=== PATIENT | male | born 1980 | race African-American/Black ===

== ENCOUNTER 2016-05-11 11:31 | Inpatient (IN) | payer OTHER ==
[2016-05-11 12:28] VITALS: BMI 23.6
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
[2016-05-11] MEDS ORDERED: NICOTINE POLACRILEX 4 MG GUM BUC PRN (14:14)
[2016-05-11] MEDS ORDERED: MENTHOL/PHENOL 1 EACH UD MM PRN (14:14)
[2016-05-11] MEDS ORDERED: guaiFENesin/D-METHORPHAN HB 10 ML UNIT-DOSE CUPS PO PRN (14:14)
[2016-05-11] MEDS ORDERED: MAG HYDROX/AL HYDROX/SIMETH 30 ML UNIT-DOSE CUP PO PRN (14:14)
[2016-05-11] MEDS ORDERED: IBUPROFEN 400 MG TABLET (FP) PO PRN (14:14)
[2016-05-11] MEDS ORDERED: LOPERAMIDE HCL 2 MG CAPSULE PO PRN (14:14)
[2016-05-11] MEDS ORDERED: ACETAMINOPHEN 325 MG TABLET (FP) PO PRN (14:14)
[2016-05-11] MEDS ORDERED: MAGNESIUM CITRATE 300 ML BOTTLE PO PRN (14:14)
[2016-05-11] MEDS ORDERED: diphenhydrAMINE HCL 50 MG CAPSULE PO PRN (14:14)
[2016-05-11] MEDS ORDERED: MAGNESIUM HYDROX 2400MG/30ML ORAL SUSPENSION 30 ML CUP PO PRN (14:14)
[2016-05-11] MEDS ORDERED: P-EPHED 60MG/TRIPROLIDI 2.5MG TABLET PO PRN (14:14)
[2016-05-11] MEDS ORDERED: chlordiazePOXIDE HCL 25 MG CAPSULE PO PRN (14:14)
[2016-05-11] MEDS ORDERED: chlordiazePOXIDE HCL 25 MG CAPSULE PO ONE (15:05)
[2016-05-11] MEDS: NICOTINE 21 MG/24 HOURS TOPICAL PATCH TD SCH (16:14)
[2016-05-11] MEDS: chlordiazePOXIDE HCL 25 MG CAPSULE PO SCH ×2 (17:31→22:40)
[2016-05-11 20:07] LABS: URINE APPEARANCE CLEAR; URINE BILIRUBIN NEGATIVE (NEGATIVE); URINE BLOOD NEGATIVE (NEGATIVE); URINE COLOR DKYELLOW; URINE GLUCOSE (UA) NEGATIVE (NEGATIVE); URINE KETONE 2+ (NEGATIVE); URINE NITRITE NEGATIVE (NEGATIVE); URINE UROBILINOGEN 2.0 E.U/dl E.U./dl (0.2-1.0)
[2016-05-11 20:09] LABS: URINE LEUK ESTERASE 2+ (NEGATIVE); URINE PROTEIN 1+ (NEGATIVE)
[2016-05-11 20:14] LABS: URINE HYALINE CAST 3 /lpf; URINE MUCUS MANY; URINE RBC 2 /hpf (0-3); URINE WBC 49 /hpf (3-5)
[2016-05-11] MEDS: THIAMINE HCL 100 MG TABLET (FP) PO SCH (22:40)
[2016-05-12] MEDS: chlordiazePOXIDE HCL 25 MG CAPSULE PO SCH ×4 (05:39→22:44)
[2016-05-12 09:59] LABS: MCH 30.3 pg (25.7-33.7); MCHC 32.4 g/dl (32.0-35.9); MEAN CELL VOLUME 93.5 fl (80-96); MEAN PLT VOLUME 8.6 fl (7.5-11.1); PLATELET COUNT 433 K/MM3 (134-434); RDW 14.8 % (11.9-15.9); WHITE BLOOD COUNT 9.4 K/mm3 (4.0-10.0)
[2016-05-12 10:22] LABS: ALBUMIN 3.2 g/dl (3.4-5.0); ALK PHOS 86 U/L (45-117); ANION GAP 10 (8-16); BILIRUBIN,TOTAL 0.3 mg/dL (0.2-1.0); CALCIUM 8.9 mg/dL (8.5-10.1); CO2 30 mmol/L (21-32); CREATININE 0.9 mg/dL (0.7-1.3); GLUCOSE,RANDOM 99 mg/dL (74-106); SGOT/AST 17 U/L (15-37); SGPT/ALT 38 U/L (12-78); TOT PROT 6.7 g/dl (6.4-8.2)
[2016-05-12] MEDS: PRENATAL VITAMINS W/ FOLIC ACID TABLET (FP) PO SCH (10:46)
[2016-05-12] MEDS: NICOTINE 21 MG/24 HOURS TOPICAL PATCH TD SCH (10:47)
--- NOTE | 2016-05-12 10:47 | EKG ---
Test Reason : Blood Pressure : / mmHG Vent. Rate : 061 BPM Atrial Rate : 061 BPM P-R Int : 148 ms QRS Dur : 086 ms QT Int : 394 ms P-R-T Axes : 073 005 022 degrees QTc Int : 396 ms NORMAL SINUS RHYTHM NO PREVIOUS ECGS AVAILABLE Confirmed by DONNIE WALKER MD ([id number]) on 05/12/2016 10:47:10 AM Referred By: Confirmed By:DONNIE WALKER MD
--- NOTE | 2016-05-12 11:19 | PN ---
[facility] CIWA - CIWA Score Nausea/Vomitin-No Nausea/No Vomiting Muscle Tremors: 4-Moderate,w/Arms Extend Anxiety: 4-Mod. Anxious/Guarded Agitation: 4-Moderately Restless Paroxysmal Sweats: 1-Minimal Palms Moist Orientation: 0-Oriented Tacttile Disturbances: 3-Moderate Itch/Numb/Burn Auditory Disturbances: 0-None Visual Disturbances: 0-None Headache: 0-None Present CIWA-Ar Total Score: 16 BHS Progress Note (SOAP) Subjective: ANXIETY,SWEATS,TREMORS,INTERMITTENT SLEEP Objective: 05/12/16 11:18 Vital Signs Temperature 98.1 F 05/12/16 09:49 Pulse Rate 93 H 05/12/16 09:49 Respiratory Rate 18 05/12/16 09:49 Blood Pressure 113/81 05/12/16 09:49 O2 Sat by Pulse Oximetry (%) Laboratory Last Values WBC 9.4 K/mm3 (4.0-10.0) 05/12/16 07:00 RBC 4.81 M/mm3 (4.00-5.60) 05/12/16 07:00 Hgb 14.6 GM/dL (11.7-16.9) 05/12/16 07:00 Hct 45.0 % (35.4-49) 05/12/16 07:00 MCV 93.5 fl (80-96) 05/12/16 07:00 MCHC 32.4 g/dl (32.0-35.9) 05/12/16 07:00 RDW 14.8 % (11.9-15.9) D 05/12/16 07:00 Plt Count 433 K/MM3 (134-434) D 05/12/16 07:00 MPV 8.6 fl (7.5-11.1) 05/12/16 07:00 Sodium 141 mmol/L (136-145) 05/12/16 07:00 Potassium 4.2 mmol/L (3.5-5.1) 05/12/16 07:00 Chloride 101 mmol/L (98-107) 05/12/16 07:00 Carbon Dioxide 30 mmol/L (21-32) 05/12/16 07:00 Anion Gap 10 (8-16) 05/12/16 07:00 BUN 9 mg/dL (7-18) D 05/12/16 07:00 Creatinine 0.9 mg/dL (0.7-1.3) D 05/12/16 07:00 Creat Clearance w eGFR > 60 (>60) 05/12/16 07:00 Random Glucose 99 mg/dL (74-106) 05/12/16 07:00 Calcium 8.9 mg/dL (8.5-10.1) 05/12/16 07:00 Total Bilirubin 0.3 mg/dL (0.2-1.0) D 05/12/16 07:00 AST 17 U/L (15-37) D 05/12/16 07:00 ALT 38 U/L (12-78) D 05/12/16 07:00 Alkaline Phosphatase 86 U/L (45-117) D 05/12/16 07:00 Total Protein 6.7 g/dl (6.4-8.2) D 05/12/16 07:00 Albumin 3.2 g/dl (3.4-5.0) L D 05/12/16 07:00 Urine Color Dkyellow 05/11/16 16:00 Urine Appearance Clear 05/11/16 16:00 Urine pH 6.0 (5.0-8.0) 05/11/16 16:00 Ur Specific [place] 1.029 (1.001-1.035) 05/11/16 16:00 Urine Protein 1+ (NEGATIVE) H 05/11/16 16:00 Urine Glucose (UA) Negative (NEGATIVE) 05/11/16 16:00 Urine Ketones 2+ (NEGATIVE) H 05/11/16 16:00 Urine Blood Negative (NEGATIVE) 05/11/16 16:00 Urine Nitrite Negative (NEGATIVE) 05/11/16 16:00 Urine Bilirubin Negative (NEGATIVE) 05/11/16 16:00 Urine Urobilinogen 2.0 e.u/dl E.U./dl (0.2-1.0) 05/11/16 16:00 Ur Leukocyte Esterase 2+ (NEGATIVE) H 05/11/16 16:00 Urine RBC 2 /hpf (0-3) 05/11/16 16:00 Urine WBC 49 /hpf (3-5) 05/11/16 16:00 Hyaline Casts 3 /lpf 05/11/16 16:00 Urine Mucus Many 05/11/16 16:00 UA NOTED Assessment: 05/12/16 11:18 WITHDRAWAL SX Plan: CONTINUE DETOX REPEAT UA; UC
[2016-05-12 12:29] LABS: HIV 1 & 2 AB NEGATIVE; HIV 1 AGp24 NEGATIVE
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
[2016-05-12 19:12] LABS: URINE APPEARANCE CLOUDY; URINE BILIRUBIN NEGATIVE (NEGATIVE); URINE BLOOD NEGATIVE (NEGATIVE); URINE COLOR AMBER; URINE GLUCOSE (UA) NEGATIVE (NEGATIVE); URINE KETONE NEGATIVE (NEGATIVE); URINE NITRITE NEGATIVE (NEGATIVE); URINE UROBILINOGEN 4.0 E.U/dl E.U./dl (0.2-1.0)
[2016-05-12 19:13] LABS: URINE LEUK ESTERASE 2+ (NEGATIVE); URINE PROTEIN 1+ (NEGATIVE)
[2016-05-12 19:27] LABS: CALCIUM OXALATE CRYSTALS RARE /hpf (NONE SEEN); URINE BACTERIA RARE /hpf (NONE SEEN); URINE MUCUS MANY; URINE RBC 5 /hpf (0-3); URINE WBC 39 /hpf (3-5)
[2016-05-12] MEDS: traZODone HCL 100 MG TABLET (FP) PO SCH (22:44)
[2016-05-12] MEDS: THIAMINE HCL 100 MG TABLET (FP) PO SCH (22:44)
[2016-05-13] MEDS: chlordiazePOXIDE HCL 25 MG CAPSULE PO SCH ×2 (06:00→10:34)
[2016-05-13] MEDS: SERTRALINE HCL 50 MG TABLET (FP) PO SCH (10:34)
[2016-05-13] MEDS: NICOTINE 21 MG/24 HOURS TOPICAL PATCH TD SCH (10:34)
[2016-05-13] MEDS: PRENATAL VITAMINS W/ FOLIC ACID TABLET (FP) PO SCH (10:34)
--- NOTE | 2016-05-13 11:00 | PN ---
[facility] CIWA - CIWA Score Nausea/Vomitin-No Nausea/No Vomiting Muscle Tremors: 4-Moderate,w/Arms Extend Anxiety: 4-Mod. Anxious/Guarded Agitation: 4-Moderately Restless Paroxysmal Sweats: 1-Minimal Palms Moist Orientation: 0-Oriented Tacttile Disturbances: 2-Mild Itch/Numbness/Burn Auditory Disturbances: 0-None Visual Disturbances: 0-None Headache: 0-None Present CIWA-Ar Total Score: 15 S Progress Note (SOAP) Subjective: ANXIETY,SWEATS,SLIGHT TREMORS. Objective: 05/13/16 10:59 Vital Signs Temperature 96.4 F L 05/13/16 10:10 Pulse Rate 90 05/13/16 10:10 Respiratory Rate 18 05/13/16 10:10 Blood Pressure 107/76 05/13/16 10:10 O2 Sat by Pulse Oximetry (%) Laboratory Last Values WBC 9.4 K/mm3 (4.0-10.0) 05/12/16 07:00 RBC 4.81 M/mm3 (4.00-5.60) 05/12/16 07:00 Hgb 14.6 GM/dL (11.7-16.9) 05/12/16 07:00 Hct 45.0 % (35.4-49) 05/12/16 07:00 MCV 93.5 fl (80-96) 05/12/16 07:00 MCHC 32.4 g/dl (32.0-35.9) 05/12/16 07:00 RDW 14.8 % (11.9-15.9) D 05/12/16 07:00 Plt Count 433 K/MM3 (134-434) D 05/12/16 07:00 MPV 8.6 fl (7.5-11.1) 05/12/16 07:00 Sodium 141 mmol/L (136-145) 05/12/16 07:00 Potassium 4.2 mmol/L (3.5-5.1) 05/12/16 07:00 Chloride 101 mmol/L (98-107) 05/12/16 07:00 Carbon Dioxide 30 mmol/L (21-32) 05/12/16 07:00 Anion Gap 10 (8-16) 05/12/16 07:00 BUN 9 mg/dL (7-18) D 05/12/16 07:00 Creatinine 0.9 mg/dL (0.7-1.3) D 05/12/16 07:00 Creat Clearance w eGFR > 60 (>60) 05/12/16 07:00 Random Glucose 99 mg/dL (74-106) 05/12/16 07:00 Calcium 8.9 mg/dL (8.5-10.1) 05/12/16 07:00 Total Bilirubin 0.3 mg/dL (0.2-1.0) D 05/12/16 07:00 AST 17 U/L (15-37) D 05/12/16 07:00 ALT 38 U/L (12-78) D 05/12/16 07:00 Alkaline Phosphatase 86 U/L (45-117) D 05/12/16 07:00 Total Protein 6.7 g/dl (6.4-8.2) D 05/12/16 07:00 Albumin 3.2 g/dl (3.4-5.0) L D 05/12/16 07:00 Urine Color Esha 05/12/16 13:20 Urine Appearance Cloudy 05/12/16 13:20 Urine pH 7.0 (5.0-8.0) 05/12/16 13:20 Ur Specific [place] 1.026 (1.001-1.035) 05/12/16 13:20 Urine Protein 1+ (NEGATIVE) H 05/12/16 13:20 Urine Glucose (UA) Negative (NEGATIVE) 05/12/16 13:20 Urine Ketones Negative (NEGATIVE) 05/12/16 13:20 Urine Blood Negative (NEGATIVE) 05/12/16 13:20 Urine Nitrite Negative (NEGATIVE) 05/12/16 13:20 Urine Bilirubin Negative (NEGATIVE) 05/12/16 13:20 Urine Urobilinogen 4.0 e.u/dl E.U./dl (0.2-1.0) 05/12/16 13:20 Ur Leukocyte Esterase 2+ (NEGATIVE) H 05/12/16 13:20 Urine RBC 5 /hpf (0-3) 05/12/16 13:20 Urine WBC 39 /hpf (3-5) 05/12/16 13:20 Calcium Oxalate Crystal Rare /hpf (NONE SEEN) 05/12/16 13:20 Urine Bacteria Rare /hpf (NONE SEEN) 05/12/16 13:20 Hyaline Casts 3 /lpf 05/11/16 16:00 Urine Mucus Many 05/12/16 13:20 RPR Titer Nonreactive (NONREACTIVE) 05/12/16 07:00 HIV 1&2 Antibody Screen Negative 05/11/16 07:00 HIV P24 Antigen Negative 05/11/16 07:00 Assessment: 05/13/16 10:59 WITHDRAWAL SX Plan: CONTINUE DETOX
[2016-05-13] MEDS: chlordiazePOXIDE 5 MG CAPSULE PO SCH ×2 (17:24→22:44)
[2016-05-13] MEDS: THIAMINE HCL 100 MG TABLET (FP) PO SCH (22:44)
[2016-05-13] MEDS: traZODone HCL 100 MG TABLET (FP) PO SCH (22:44)
[2016-05-14] MEDS: chlordiazePOXIDE 5 MG CAPSULE PO SCH ×2 (06:16→10:39)
[2016-05-14] MEDS: SERTRALINE HCL 50 MG TABLET (FP) PO SCH (10:38)
[2016-05-14] MEDS: PRENATAL VITAMINS W/ FOLIC ACID TABLET (FP) PO SCH (10:38)
[2016-05-14] MEDS: NICOTINE 21 MG/24 HOURS TOPICAL PATCH TD SCH (10:39)
--- NOTE | 2016-05-14 12:21 | PN ---
BHS Progress Note (SOAP) Subjective: ANXIETY,SWEATS,FATIGUE. Objective: 05/14/16 12:20 Vital Signs Temperature 96.6 F L 05/14/16 09:52 Pulse Rate 100 H 05/14/16 09:52 Respiratory Rate 18 05/14/16 09:52 Blood Pressure 113/71 05/14/16 09:52 O2 Sat by Pulse Oximetry (%) Assessment: 05/14/16 12:20 WITHDRAWAL SX Plan: CONTINUE DETOX
[2016-05-14] MEDS: chlordiazePOXIDE HCL 10 MG CAPSULE PO SCH ×2 (17:40→22:50)
[2016-05-14] MEDS: traZODone HCL 100 MG TABLET (FP) PO SCH (22:50)
[2016-05-14] MEDS: THIAMINE HCL 100 MG TABLET (FP) PO SCH (22:50)
[2016-05-15] MEDS: chlordiazePOXIDE HCL 10 MG CAPSULE PO SCH ×2 (06:00→10:32)
[2016-05-15 06:27] VITALS: TEMP 96.3
[2016-05-15 09:36] VITALS: BP 102/65; PULSE 93
--- NOTE | 2016-05-15 10:15 | DS ---
[facility] Detox Discharge Summary Admission Date: 05/11/16 Discharge Date: 05/15/16 - History Present History: Alcohol Dependence, Cannabis Dependence Pertinent Past History: HTN - Physical Exam Results Vital Signs: Vital Signs Temperature 96.3 F L 05/15/16 09:36 Pulse Rate 93 H 05/15/16 09:36 Respiratory Rate 20 05/15/16 09:36 Blood Pressure 102/65 05/15/16 09:36 O2 Sat by Pulse Oximetry (%) Pertinent Admission Physical Exam Findings: Withdrawal sx. Laboratory Last Values WBC 9.4 K/mm3 (4.0-10.0) 05/12/16 07:00 RBC 4.81 M/mm3 (4.00-5.60) 05/12/16 07:00 Hgb 14.6 GM/dL (11.7-16.9) 05/12/16 07:00 Hct 45.0 % (35.4-49) 05/12/16 07:00 MCV 93.5 fl (80-96) 05/12/16 07:00 MCHC 32.4 g/dl (32.0-35.9) 05/12/16 07:00 RDW 14.8 % (11.9-15.9) D 05/12/16 07:00 Plt Count 433 K/MM3 (134-434) D 05/12/16 07:00 MPV 8.6 fl (7.5-11.1) 05/12/16 07:00 Sodium 141 mmol/L (136-145) 05/12/16 07:00 Potassium 4.2 mmol/L (3.5-5.1) 05/12/16 07:00 Chloride 101 mmol/L (98-107) 05/12/16 07:00 Carbon Dioxide 30 mmol/L (21-32) 05/12/16 07:00 Anion Gap 10 (8-16) 05/12/16 07:00 BUN 9 mg/dL (7-18) D 05/12/16 07:00 Creatinine 0.9 mg/dL (0.7-1.3) D 05/12/16 07:00 Creat Clearance w eGFR > 60 (>60) 05/12/16 07:00 Random Glucose 99 mg/dL (74-106) 05/12/16 07:00 Calcium 8.9 mg/dL (8.5-10.1) 05/12/16 07:00 Total Bilirubin 0.3 mg/dL (0.2-1.0) D 05/12/16 07:00 AST 17 U/L (15-37) D 05/12/16 07:00 ALT 38 U/L (12-78) D 05/12/16 07:00 Alkaline Phosphatase 86 U/L (45-117) D 05/12/16 07:00 Total Protein 6.7 g/dl (6.4-8.2) D 05/12/16 07:00 Albumin 3.2 g/dl (3.4-5.0) L D 05/12/16 07:00 Urine Color Esha 05/12/16 13:20 Urine Appearance Cloudy 05/12/16 13:20 Urine pH 7.0 (5.0-8.0) 05/12/16 13:20 Ur Specific [place] 1.026 (1.001-1.035) 05/12/16 13:20 Urine Protein 1+ (NEGATIVE) H 05/12/16 13:20 Urine Glucose (UA) Negative (NEGATIVE) 05/12/16 13:20 Urine Ketones Negative (NEGATIVE) 05/12/16 13:20 Urine Blood Negative (NEGATIVE) 05/12/16 13:20 Urine Nitrite Negative (NEGATIVE) 05/12/16 13:20 Urine Bilirubin Negative (NEGATIVE) 05/12/16 13:20 Urine Urobilinogen 4.0 e.u/dl E.U./dl (0.2-1.0) 05/12/16 13:20 Ur Leukocyte Esterase 2+ (NEGATIVE) H 05/12/16 13:20 Urine RBC 5 /hpf (0-3) 05/12/16 13:20 Urine WBC 39 /hpf (3-5) 05/12/16 13:20 Calcium Oxalate Crystal Rare /hpf (NONE SEEN) 05/12/16 13:20 Urine Bacteria Rare /hpf (NONE SEEN) 05/12/16 13:20 Hyaline Casts 3 /lpf 05/11/16 16:00 Urine Mucus Many 05/12/16 13:20 RPR Titer Nonreactive (NONREACTIVE) 05/12/16 07:00 HIV 1&2 Antibody Screen Negative 05/11/16 07:00 HIV P24 Antigen Negative 05/11/16 07:00 labs noted - Treatment Hospital Course: Detox Protocol Followed, Detoxed Safely, Responded well, Discharged Condition Good, Rehab Referral Accepted - Medication Discharge Medications: Ambulatory Orders Trazodone HCl [Desyrel -] 100 mg PO HS #30 tablet 01/15/15 Sertraline HCl [Zoloft -] 50 mg PO DAILY 05/11/16 Sertraline HCl [Zoloft -] 50 mg PO DAILY #30 tablet 05/13/16 Trazodone HCl [Desyrel -] 50 mg PO HS #30 tablet 05/13/16 - Diagnosis (1) Alcohol dependence with uncomplicated withdrawal Current Visit: Yes Status: Acute (2) Insomnia Current Visit: Yes Status: Acute Qualifiers: Insomnia type: alcohol-induced Qualified Code(s): F10.982 - Alcohol use, unspecified with alcohol-induced sleep disorder (3) Marijuana dependence Current Visit: Yes Status: Acute (4) Nicotine dependence Current Visit: Yes Status: Acute Qualifiers: Nicotine product type: cigarettes Substance use status: uncomplicated Qualified Code(s): F17.210 - Nicotine dependence, cigarettes, uncomplicated (5) Substance induced mood disorder Current Visit: Yes Status: Acute (6) Depressive disorder Current Visit: Yes Status: Chronic (7) Hypertension Current Visit: Yes Status: Chronic Qualifiers: Hypertension type: essential hypertension Qualified Code(s): I10 - Essential (primary) hypertension - AMA Did Patient Leave Against Medical Advice: No
[2016-05-15] MEDS: PRENATAL VITAMINS W/ FOLIC ACID TABLET (FP) PO SCH (10:32)
[2016-05-15] MEDS: SERTRALINE HCL 50 MG TABLET (FP) PO SCH (10:32)
[2016-05-15] MEDS: NICOTINE 21 MG/24 HOURS TOPICAL PATCH TD SCH (10:33)
== END 2016-05-15 13:55 | disposition home or self-care (01) | DRG 775 ==
LOC: YASAS 11:31 → Y3N 15:01
PROVIDERS: ADMIT Internal Medicine; ATTEND Internal Medicine
PROC: HZ2ZZZZ Detoxification Services for Substance Abuse Treatment (ICD-10-PCS; principal; 2016-05-15)
DX: F10.230 Alcohol dependence with withdrawal, uncomplicated (principal); F12.20 Cannabis dependence, uncomplicated; F17.210 Nicotine dependence, cigarettes, uncomplicated; F19.24 Other psychoactive substance dependence with psychoactive substance-induced mood disorder; F33.9 Major depressive disorder, recurrent, unspecified; G47.00 Insomnia, unspecified; I10 Essential (primary) hypertension
CPT/HCPCS: 36415; 80053; 81003; 81015; 85027; 86593; 87086; 87389; 93005; 93010

== ENCOUNTER 2018-08-23 11:52 | Inpatient (IN) | payer OTHER ==
[2018-08-23 14:04] VITALS: BMI 23.1
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
[2018-08-23] MEDS ORDERED: P-EPHED 60MG/TRIPROLIDI 2.5MG TABLET PO PRN (15:17)
[2018-08-23] MEDS ORDERED: IBUPROFEN 400 MG TABLET (FP) PO PRN (15:17)
[2018-08-23] MEDS ORDERED: guaiFENesin 200 MG/10 ML 10 ML UNIT-DOSE CUPS PO PRN (15:17)
[2018-08-23] MEDS ORDERED: LOPERAMIDE HCL 2 MG CAPSULE PO PRN (15:17)
[2018-08-23] MEDS ORDERED: MENTHOL/PHENOL 1 EACH UD MM PRN (15:17)
[2018-08-23] MEDS ORDERED: ACETAMINOPHEN 325 MG TABLET (FP) PO PRN (15:17)
[2018-08-23] MEDS ORDERED: MAGNESIUM HYDROX 2400MG/30ML ORAL SUSPENSION 30 ML CUP PO PRN (15:17)
[2018-08-23] MEDS ORDERED: MAG HYDROX/AL HYDROX/SIMETH 30 ML UNIT-DOSE CUP PO PRN (15:17)
[2018-08-23] MEDS ORDERED: hydrOXYzine PAMOATE 25 MG CAPSULE (FP) PO PRN (15:17)
[2018-08-23] MEDS ORDERED: MAGNESIUM CITRATE 300 ML BOTTLE PO PRN (15:17)
[2018-08-23 17:37] LABS: HEMATOCRIT 44.4 % (35.4-49); HEMOGLOBIN 14.4 GM/dL (11.7-16.9); MCH 30.9 pg (25.7-33.7); MCHC 32.5 g/dl (32.0-35.9); MEAN CELL VOLUME 95.1 fl (80-96); PLATELET COUNT 224 K/MM3 (134-434); RBC 4.67 M/mm3 (4.00-5.60); RDW 15.2 % (11.9-15.9)
[2018-08-23 17:46] LABS: ALBUMIN 4.1 g/dl (3.4-5.0); BILIRUBIN,TOTAL 0.7 mg/dL (0.2-1); CALCIUM 9.3 mg/dL (8.5-10.1); CREATININE 0.8 mg/dL (0.55-1.3); POTASSIUM 4.3 mmol/L (3.5-5.1); TOT PROT 7.8 g/dl (6.4-8.2)
[2018-08-23] MEDS ORDERED: TUBERCULIN PPD 5 TU/0.1ML VIAL ID ONE (21:04)
[2018-08-23] MEDS: DIVALPROEX NA *ER* EXTEND REL 500 MG TABLET.SA (FP) PO SCH (21:09)
[2018-08-23] MEDS: traZODone HCL 100 MG TABLET (FP) PO SCH (21:09)
[2018-08-23] MEDS: THIAMINE HCL 100 MG TABLET (FP) PO SCH (21:09)
[2018-08-23] MEDS: OLANZapine 10 MG TABLET PO SCH (22:00)
[2018-08-24 07:34] LABS: EPI CELLS 2.7 /HPF (0-5/HPF); HYALINE CASTS 10 /lpf (0-8); URINE APPEARANCE TURBID; URINE BACTERIA 10.5 /hpf (NEGATIVE); URINE BILIRUBIN 1+ (NEGATIVE); URINE COLOR DK YELLOW; URINE GLUCOSE (UA) NEGATIVE (NEGATIVE); URINE KETONE 1+ (NEGATIVE); URINE LEUK ESTERASE TRACE (NEGATIVE); URINE NITRITE NEGATIVE (NEGATIVE); URINE PROTEIN NEGATIVE (NEGATIVE); URINE RBC 4 /hpf (0-4); URINE WBC 5 /hpf (0-5)
[2018-08-24 08:17] LABS: URINE CRYSTALS NO CRYSRTAL SEEN /hpf
[2018-08-24] MEDS: SERTRALINE HCL 50 MG TABLET (FP) PO SCH (10:02)
[2018-08-24] MEDS: DIVALPROEX NA *ER* EXTEND REL 500 MG TABLET.SA (FP) PO SCH ×2 (10:02→21:36)
[2018-08-24] MEDS: PRENATAL VITAMINS W/ FOLIC ACID TABLET (FP) PO SCH (10:02)
[2018-08-24] MEDS: NICOTINE POLACRILEX 4 MG GUM BC PRN ×2 (10:03→21:37)
--- NOTE | 2018-08-24 14:14 | CONSULT ---
[facility] Psychiatric Consult - Data Date of interview: 08/24/18 Admission source: Self-referred Identifying data: Mr Edouard is a 38 years old single Black male, father of 2 children, unemployed with no source of income, homeless seeking rehab treatment for alcohol and cannabis Substance Abuse History: Reports history of alcohol and marijuana use. Refer to addiction counselor's summary for further information Medical History: Significant for history of orthosurgery for fracture of left femur due to a fall. Smokes cigarettes 1 ppd Psychiatric History: Patient reports that his first psychiatric contact was as a child. He cannot not provide any details about the nature and duration of his treatment at the time but denies that he was not on psychotropic medication. Reports that he was diagnosed with Bipolar depression 5-6 years ago when he was admitted to [facility]. Claims that he was started on the same medications he is on now(Zoloft, Zyprexa, Trazadone, Depakote). Reports multiple subsequent psychiatric hospitalizations mostly at [facility]. He is also known to [facility]. He is most recent admission was in 2018 at [facility]. He reports going to a walking clinic at [facility] for his psychotropic medications. Reports vaguely previous suicidal attempt. At present, denies experiencing psychotic, manic or depressive symptoms, S/H ideations Physical/Sexual Abuse/Trauma History: Denies history of emotional, physical or sexual abuse s well as DV relationship. No service Additional Comment: Reports history of multiple previous arrests including 2-3 felony convictions. Denies being on parole/probation at present Mental Status Exam - Mental Status Exam Alert and Oriented to: Time, Place, Person Cognitive Function: Fair Patient Appearance: Well Groomed Mood: Hopeful, Euthymic Patient Behavior: Cooperative Speech Pattern: Clear Voice Loudness: Normal Thought Process: Intact, Goal Oriented Thought Disorder: Not Present Hallucinations: Denies Suicidal Ideation: Denies Homicidal Ideation: Denies Insight/Judgement: Poor Sleep: Poorly Appetite: Good Muscle strength/Tone: Normal Gait/Station: Normal Psychiatric Findings - Problem List ([place] 1, 2,3) (1) Schizoaffective disorder Current Visit: Yes Status: Chronic (2) Bipolar disorder Current Visit: Yes Status: Ruled-out (3) Substance-induced sleep disorder Current Visit: Yes Status: Acute (4) Alcohol dependence Current Visit: Yes Status: Acute (5) Cannabis dependence Current Visit: Yes Status: Acute (6) Nicotine dependence Current Visit: No Status: Acute Qualifiers: Nicotine product type: cigarettes Substance use status: uncomplicated Qualified Code(s): F17.210 - Nicotine dependence, cigarettes, uncomplicated (7) Hypertension Current Visit: No Status: Chronic Qualifiers: Hypertension type: essential hypertension Qualified Code(s): I10 - Essential (primary) hypertension - Initial Treatment Plan Initial Treatment Plan: 1) Continue Zoloft 50 mg po daily, Depakote 500 mg po BID, Zyprexa 10 mg po daily, Trazadone 100 mg po HS. 2) Continue inpatient rehabilitation
[2018-08-24] MEDS: THIAMINE HCL 100 MG TABLET (FP) PO SCH (21:36)
[2018-08-24] MEDS: traZODone HCL 100 MG TABLET (FP) PO SCH (21:37)
[2018-08-24] MEDS: MELATONIN 5 MG TABLETS PO PRN (21:37)
[2018-08-24] MEDS: OLANZapine 10 MG TABLET PO SCH (21:37)
[2018-08-25] MEDS: SERTRALINE HCL 50 MG TABLET (FP) PO SCH (10:06)
[2018-08-25] MEDS: PRENATAL VITAMINS W/ FOLIC ACID TABLET (FP) PO SCH (10:06)
[2018-08-25] MEDS: DIVALPROEX NA *ER* EXTEND REL 500 MG TABLET.SA (FP) PO SCH ×2 (10:06→21:07)
[2018-08-25] MEDS: NICOTINE POLACRILEX 4 MG GUM BC PRN (10:07)
[2018-08-25] MEDS: THIAMINE HCL 100 MG TABLET (FP) PO SCH (21:07)
[2018-08-25] MEDS: OLANZapine 10 MG TABLET PO SCH (21:07)
[2018-08-25] MEDS: traZODone HCL 100 MG TABLET (FP) PO SCH (21:07)
[2018-08-25] MEDS: MELATONIN 5 MG TABLETS PO PRN (21:08)
[2018-08-26] MEDS: DIVALPROEX NA *ER* EXTEND REL 500 MG TABLET.SA (FP) PO SCH ×2 (09:58→21:32)
[2018-08-26] MEDS: PRENATAL VITAMINS W/ FOLIC ACID TABLET (FP) PO SCH (09:58)
[2018-08-26] MEDS: SERTRALINE HCL 50 MG TABLET (FP) PO SCH (09:58)
[2018-08-26] MEDS: NICOTINE POLACRILEX 4 MG GUM BC PRN ×2 (09:59→21:33)
[2018-08-26] MEDS: THIAMINE HCL 100 MG TABLET (FP) PO SCH (21:32)
[2018-08-26] MEDS: MELATONIN 5 MG TABLETS PO PRN (21:32)
[2018-08-26] MEDS: traZODone HCL 100 MG TABLET (FP) PO SCH (21:33)
[2018-08-26] MEDS: OLANZapine 10 MG TABLET PO SCH (21:33)
[2018-08-27] MEDS: SERTRALINE HCL 50 MG TABLET (FP) PO SCH (09:41)
[2018-08-27] MEDS: PRENATAL VITAMINS W/ FOLIC ACID TABLET (FP) PO SCH (09:41)
[2018-08-27] MEDS: NICOTINE POLACRILEX 4 MG GUM BC PRN (09:42)
[2018-08-27] MEDS: DIVALPROEX NA *ER* EXTEND REL 500 MG TABLET.SA (FP) PO SCH ×2 (09:42→21:05)
[2018-08-27] MEDS: THIAMINE HCL 100 MG TABLET (FP) PO SCH (21:04)
[2018-08-27] MEDS: OLANZapine 10 MG TABLET PO SCH (21:05)
[2018-08-27] MEDS: MELATONIN 5 MG TABLETS PO PRN (21:05)
[2018-08-27] MEDS: traZODone HCL 100 MG TABLET (FP) PO SCH (21:05)
[2018-08-28] MEDS: DIVALPROEX NA *ER* EXTEND REL 500 MG TABLET.SA (FP) PO SCH ×2 (10:58→21:37)
[2018-08-28] MEDS: PRENATAL VITAMINS W/ FOLIC ACID TABLET (FP) PO SCH (10:58)
[2018-08-28] MEDS: SERTRALINE HCL 50 MG TABLET (FP) PO SCH (10:58)
[2018-08-28] MEDS: OLANZapine 10 MG TABLET PO SCH (21:36)
[2018-08-28] MEDS: THIAMINE HCL 100 MG TABLET (FP) PO SCH (21:36)
[2018-08-28] MEDS: MELATONIN 5 MG TABLETS PO PRN (21:36)
[2018-08-28] MEDS: traZODone HCL 100 MG TABLET (FP) PO SCH (21:37)
[2018-08-29] MEDS: PRENATAL VITAMINS W/ FOLIC ACID TABLET (FP) PO SCH (09:51)
[2018-08-29] MEDS: SERTRALINE HCL 50 MG TABLET (FP) PO SCH (09:51)
[2018-08-29] MEDS: DIVALPROEX NA *ER* EXTEND REL 500 MG TABLET.SA (FP) PO SCH ×2 (09:52→21:01)
[2018-08-29] MEDS: NICOTINE POLACRILEX 4 MG GUM BC PRN (09:53)
[2018-08-29] MEDS ORDERED: PT OWN MED DRAWER 7, Y5N ONE (19:38)
[2018-08-29] MEDS: OLANZapine 10 MG TABLET PO SCH (21:01)
[2018-08-29] MEDS: traZODone HCL 100 MG TABLET (FP) PO SCH (21:01)
[2018-08-29] MEDS: THIAMINE HCL 100 MG TABLET (FP) PO SCH (21:01)
[2018-08-29] MEDS: MELATONIN 5 MG TABLETS PO PRN (21:01)
[2018-08-30] MEDS: PRENATAL VITAMINS W/ FOLIC ACID TABLET (FP) PO SCH (09:46)
[2018-08-30] MEDS: SERTRALINE HCL 50 MG TABLET (FP) PO SCH (09:46)
[2018-08-30] MEDS: NICOTINE POLACRILEX 4 MG GUM BC PRN (09:47)
[2018-08-30] MEDS: DIVALPROEX NA *ER* EXTEND REL 500 MG TABLET.SA (FP) PO SCH ×2 (09:47→21:13)
[2018-08-30] MEDS ORDERED: PT OWN MED DRAWER 7, Y5N ONE ×2 (09:47→19:51)
[2018-08-30] MEDS: OLANZapine 10 MG TABLET PO SCH (21:13)
[2018-08-30] MEDS: THIAMINE HCL 100 MG TABLET (FP) PO SCH (21:13)
[2018-08-30] MEDS: traZODone HCL 100 MG TABLET (FP) PO SCH (21:13)
[2018-08-30] MEDS: MELATONIN 5 MG TABLETS PO PRN (21:14)
[2018-08-31] MEDS: DIVALPROEX NA *ER* EXTEND REL 500 MG TABLET.SA (FP) PO SCH ×2 (09:57→21:36)
[2018-08-31] MEDS: SERTRALINE HCL 50 MG TABLET (FP) PO SCH (09:57)
[2018-08-31] MEDS: PRENATAL VITAMINS W/ FOLIC ACID TABLET (FP) PO SCH (09:57)
[2018-08-31] MEDS ORDERED: PT OWN MED DRAWER 7, Y5N ONE (19:40)
[2018-08-31] MEDS: THIAMINE HCL 100 MG TABLET (FP) PO SCH (21:36)
[2018-08-31] MEDS: traZODone HCL 100 MG TABLET (FP) PO SCH (21:36)
[2018-08-31] MEDS: MELATONIN 5 MG TABLETS PO PRN (21:36)
[2018-08-31] MEDS: OLANZapine 10 MG TABLET PO SCH (21:38)
[2018-09-01] MEDS: DIVALPROEX NA *ER* EXTEND REL 500 MG TABLET.SA (FP) PO SCH ×2 (09:29→21:20)
[2018-09-01] MEDS: SERTRALINE HCL 50 MG TABLET (FP) PO SCH (09:29)
[2018-09-01] MEDS: PRENATAL VITAMINS W/ FOLIC ACID TABLET (FP) PO SCH (09:29)
[2018-09-01] MEDS: NICOTINE POLACRILEX 4 MG GUM BC PRN ×2 (09:30→21:22)
--- NOTE | 2018-09-01 13:11 | PN ---
S Progress Note Note: 38 years old male admitted on 08/23/18 for alcohol rehab history of biopolar treated with depakote seen by psychiatrist eligio level pending
[2018-09-01] MEDS: traZODone HCL 100 MG TABLET (FP) PO SCH (21:20)
[2018-09-01] MEDS: THIAMINE HCL 100 MG TABLET (FP) PO SCH (21:20)
[2018-09-01] MEDS: OLANZapine 10 MG TABLET PO SCH (21:20)
[2018-09-01] MEDS: MELATONIN 5 MG TABLETS PO PRN (21:21)
[2018-09-02] MEDS ORDERED: PT OWN MED DRAWER 7, Y5N ONE ×2 (08:28→19:15)
[2018-09-02] MEDS: DIVALPROEX NA *ER* EXTEND REL 500 MG TABLET.SA (FP) PO SCH ×2 (10:19→21:03)
[2018-09-02] MEDS: PRENATAL VITAMINS W/ FOLIC ACID TABLET (FP) PO SCH (10:19)
[2018-09-02] MEDS: SERTRALINE HCL 50 MG TABLET (FP) PO SCH (10:19)
[2018-09-02] MEDS: NICOTINE POLACRILEX 4 MG GUM BC PRN ×2 (10:20→21:04)
[2018-09-02] MEDS: MELATONIN 5 MG TABLETS PO PRN (21:02)
[2018-09-02] MEDS: traZODone HCL 100 MG TABLET (FP) PO SCH (21:02)
[2018-09-02] MEDS: OLANZapine 10 MG TABLET PO SCH (21:02)
[2018-09-02] MEDS: THIAMINE HCL 100 MG TABLET (FP) PO SCH (21:03)
[2018-09-03] MEDS ORDERED: PT OWN MED DRAWER 7, Y5N ONE ×2 (08:27→19:06)
[2018-09-03] MEDS: SERTRALINE HCL 50 MG TABLET (FP) PO SCH (10:32)
[2018-09-03] MEDS: PRENATAL VITAMINS W/ FOLIC ACID TABLET (FP) PO SCH (10:32)
[2018-09-03] MEDS: DIVALPROEX NA *ER* EXTEND REL 500 MG TABLET.SA (FP) PO SCH ×2 (10:32→21:54)
[2018-09-03] MEDS: THIAMINE HCL 100 MG TABLET (FP) PO SCH (21:54)
[2018-09-03] MEDS: traZODone HCL 100 MG TABLET (FP) PO SCH (21:54)
[2018-09-03] MEDS: MELATONIN 5 MG TABLETS PO PRN (21:54)
[2018-09-03] MEDS: OLANZapine 10 MG TABLET PO SCH (21:54)
[2018-09-03] MEDS: NICOTINE POLACRILEX 4 MG GUM BC PRN (21:55)
[2018-09-04] MEDS ORDERED: PT OWN MED DRAWER 7, Y5N ONE ×2 (08:23→19:11)
[2018-09-04] MEDS: DIVALPROEX NA *ER* EXTEND REL 500 MG TABLET.SA (FP) PO SCH ×2 (10:08→21:15)
[2018-09-04] MEDS: PRENATAL VITAMINS W/ FOLIC ACID TABLET (FP) PO SCH (10:08)
[2018-09-04] MEDS: SERTRALINE HCL 50 MG TABLET (FP) PO SCH (10:08)
[2018-09-04] MEDS: NICOTINE POLACRILEX 4 MG GUM BC PRN (10:09)
[2018-09-04] MEDS: OLANZapine 10 MG TABLET PO SCH (21:14)
[2018-09-04] MEDS: traZODone HCL 100 MG TABLET (FP) PO SCH (21:15)
[2018-09-04] MEDS: MELATONIN 5 MG TABLETS PO PRN (21:15)
[2018-09-04] MEDS: THIAMINE HCL 100 MG TABLET (FP) PO SCH (21:15)
[2018-09-05] MEDS ORDERED: PT OWN MED DRAWER 7, Y5N ONE (08:26)
[2018-09-05] MEDS: SERTRALINE HCL 50 MG TABLET (FP) PO SCH (09:34)
[2018-09-05] MEDS: PRENATAL VITAMINS W/ FOLIC ACID TABLET (FP) PO SCH (09:34)
[2018-09-05] MEDS: DIVALPROEX NA *ER* EXTEND REL 500 MG TABLET.SA (FP) PO SCH ×2 (09:34→21:06)
[2018-09-05] MEDS: NICOTINE POLACRILEX 4 MG GUM BC PRN (09:36)
--- NOTE | 2018-09-05 13:57 | PN ---
[facility] Progress Note Note: Patient is scheduled for discharge tomorrow. Scripts for 30 days supply of medications(Zolft 50 mg/day, Zyprexa 10 mg/hs, Depakote 500 mg/bid, Trazadone 100 mg/hs) will be electronically transmitted to [facility] at [address] [place] [id number]
--- NOTE | 2018-09-05 15:07 | PN ---
[facility] Progress Note (SOAP) Subjective: Patient to be discharged tomorrow. Objective: Medically stable for discharge. Lungs clear, heart sounds regular, Abd soft, non -tender, non-distended, +BS. No neurological deficits noted. 09/05/18 15:06 CBC, BMP 08/23/18 15:30 08/23/18 15:30 Vital Signs (72 hours) 09/03/18 09/03/18 09/04/18 03:30 06:43 00:30 Temperature 97.8 F Pulse Rate 80 Respiratory 20 18 20 Rate Blood Pressure 120/79 09/04/18 09/05/18 09/05/18 06:45 00:30 03:30 Temperature 97.7 F Pulse Rate 76 Respiratory 18 18 18 Rate Blood Pressure 126/73 09/05/18 07:16 Temperature 97.3 F L Pulse Rate 57 L Respiratory 18 Rate Blood Pressure 127/91 Assessment: Medically stable for discharge. Discharge Dx: ETOH dependence Cannabis dependence HTN 09/05/18 15:07 Plan: Patient will go home to await admission to [facility] when a bed becomes available. Receives medical care at [facility] outpatient. Prescriptions transmitted to pharmacy.
[2018-09-05] MEDS: traZODone HCL 100 MG TABLET (FP) PO SCH (21:06)
[2018-09-05] MEDS: THIAMINE HCL 100 MG TABLET (FP) PO SCH (21:06)
[2018-09-05] MEDS: MELATONIN 5 MG TABLETS PO PRN (21:06)
[2018-09-05] MEDS: OLANZapine 10 MG TABLET PO SCH (22:12)
[2018-09-06 06:38] VITALS: BP 131/99; PULSE 59; TEMP 97.6
== END 2018-09-06 07:15 | disposition home or self-care (01) | DRG 772 ==
LOC: YASAS 11:52 → Y3W 16:13
PROVIDERS: ADMIT Neuromusculoskeletal Medicine & OMM; ATTEND Neuromusculoskeletal Medicine & OMM
PROC: HZ42ZZZ Group Counseling for Substance Abuse Treatment, Cognitive-Behavioral (ICD-10-PCS; principal; 2018-08-23)
DX: F10.20 Alcohol dependence, uncomplicated (principal); F12.20 Cannabis dependence, uncomplicated; F17.210 Nicotine dependence, cigarettes, uncomplicated; F19.282 Other psychoactive substance dependence with psychoactive substance-induced sleep disorder; F19.24 Other psychoactive substance dependence with psychoactive substance-induced mood disorder; F25.9 Schizoaffective disorder, unspecified; F31.9 Bipolar disorder, unspecified; I10 Essential (primary) hypertension
CPT/HCPCS: 36415; 80053; 80164; 81003; 85027; 86593

== ENCOUNTER 2020-08-05 14:06 | Inpatient (IN) | payer OTHER ==
[2020-08-05 15:24] VITALS: BMI 24.5
[2020-08-05] MEDS ORDERED: hydrOXYzine PAMOATE 25 MG CAPSULE (FP) PO PRN (19:58)
[2020-08-05] MEDS ORDERED: P-EPHED 60MG/TRIPROLIDI 2.5MG TABLET PO PRN (19:58)
[2020-08-05] MEDS ORDERED: MAG HYDROX/AL HYDROX/SIMETH 30 ML UNIT-DOSE CUP PO PRN (19:58)
[2020-08-05] MEDS ORDERED: guaiFENesin 200 MG/10 ML 10 ML UNIT-DOSE CUPS PO PRN (19:58)
[2020-08-05] MEDS ORDERED: NICOTINE POLACRILEX 2 MG GUM BC PRN (19:58)
[2020-08-05] MEDS ORDERED: IBUPROFEN 400 MG TABLET (FP) PO PRN (19:58)
[2020-08-05] MEDS ORDERED: ACETAMINOPHEN 325 MG TABLET (FP) PO PRN (19:58)
[2020-08-05] MEDS ORDERED: LOPERAMIDE HCL 2 MG CAPSULE PO PRN (19:58)
[2020-08-05] MEDS ORDERED: MAGNESIUM CITRATE 300 ML BOTTLE PO PRN (19:58)
[2020-08-05] MEDS ORDERED: MAGNESIUM HYDROX 2400MG/30ML ORAL SUSPENSION 30 ML CUP PO PRN (19:58)
[2020-08-05] MEDS ORDERED: TUBERCULIN PPD 5 TU/0.1ML VIAL ID ONE (21:38)
[2020-08-05] MEDS: THIAMINE HCL 100 MG TABLET (FP) PO SCH (21:44)
[2020-08-05] MEDS ORDERED: MELATONIN 5 MG TABLETS PO SCH (22:00)
[2020-08-06 09:54] LABS: HEMATOCRIT 43.8 % (35.4-49); MCH 31.4 pg (25.7-33.7); MCHC 34.2 g/dl (32.0-35.9); MEAN CELL VOLUME 91.8 fl (80-96); MEAN PLT VOLUME 8.6 fl (7.5-11.1); PLATELET COUNT 343 K/MM3 (134-434); RBC 4.77 M/mm3 (4.00-5.60); RDW 16.3 % (11.9-15.9); WHITE BLOOD COUNT 4.9 K/mm3 (4.0-10.0)
[2020-08-06 10:33] LABS: CALCIUM 8.7 mg/dL (8.5-10.1)
[2020-08-06 10:34] LABS: ALBUMIN 3.6 g/dl (3.4-5.0); BLOOD UREA NITROGEN 10.2 mg/dL (7-18)
[2020-08-06 10:37] LABS: CREATININE 0.8 mg/dL (0.55-1.3)
[2020-08-06 10:38] LABS: BILIRUBIN,TOTAL 0.8 mg/dL (0.2-1); TOT PROT 7.3 g/dl (6.4-8.2)
[2020-08-06] MEDS: PRENATAL VITAMINS W/ FOLIC ACID TABLET (FP) PO SCH (11:05)
[2020-08-06] MEDS ORDERED: MASKS NR ONE (19:03)
[2020-08-06 21:11] LABS: URINE APPEARANCE CLEAR; URINE BILIRUBIN NEGATIVE (NEGATIVE); URINE COLOR YELLOW; URINE GLUCOSE (UA) NEGATIVE (NEGATIVE); URINE KETONE 1+ (NEGATIVE); URINE LEUK ESTERASE NEGATIVE (NEGATIVE); URINE NITRITE NEGATIVE (NEGATIVE); URINE PROTEIN NEGATIVE (NEGATIVE)
[2020-08-06] MEDS: THIAMINE HCL 100 MG TABLET (FP) PO SCH (21:32)
[2020-08-06] MEDS: MELATONIN 5 MG TABLETS PO PRN (21:32)
[2020-08-06] MEDS: traZODone HCL 100 MG TABLET (FP) PO SCH (21:33)
[2020-08-06] MEDS: DIVALPROEX NA *ER* EXTEND REL 500 MG TABLET.SA (FP) PO SCH (21:33)
[2020-08-07] MEDS: ENALAPRIL MALEATE 10 MG TABLET PO SCH (12:02)
[2020-08-07] MEDS: PRENATAL VITAMINS W/ FOLIC ACID TABLET (FP) PO SCH (12:02)
[2020-08-07] MEDS: THIAMINE HCL 100 MG TABLET (FP) PO SCH (21:00)
[2020-08-07] MEDS: traZODone HCL 100 MG TABLET (FP) PO SCH (21:00)
[2020-08-07] MEDS: DIVALPROEX NA *ER* EXTEND REL 500 MG TABLET.SA (FP) PO SCH (21:00)
[2020-08-07] MEDS: MELATONIN 5 MG TABLETS PO PRN (21:00)
[2020-08-08] MEDS: PRENATAL VITAMINS W/ FOLIC ACID TABLET (FP) PO SCH (10:39)
[2020-08-08] MEDS: ENALAPRIL MALEATE 10 MG TABLET PO SCH (10:39)
[2020-08-08] MEDS ORDERED: MASKS NR ONE (11:27)
[2020-08-08] MEDS: traZODone HCL 100 MG TABLET (FP) PO SCH (22:05)
[2020-08-08] MEDS: THIAMINE HCL 100 MG TABLET (FP) PO SCH (22:06)
[2020-08-08] MEDS: DIVALPROEX NA *ER* EXTEND REL 500 MG TABLET.SA (FP) PO SCH (22:06)
[2020-08-08] MEDS: MELATONIN 5 MG TABLETS PO PRN (22:06)
[2020-08-09 06:06] LABS: SARS-CoV-2 NAA Not Detected (Not Detected)
[2020-08-09] MEDS: ENALAPRIL MALEATE 10 MG TABLET PO SCH (11:23)
[2020-08-09] MEDS: PRENATAL VITAMINS W/ FOLIC ACID TABLET (FP) PO SCH (11:23)
[2020-08-09] MEDS: MELATONIN 5 MG TABLETS PO PRN (21:02)
[2020-08-09] MEDS: THIAMINE HCL 100 MG TABLET (FP) PO SCH (21:02)
[2020-08-09] MEDS: traZODone HCL 100 MG TABLET (FP) PO SCH (21:02)
[2020-08-09] MEDS: DIVALPROEX NA *ER* EXTEND REL 500 MG TABLET.SA (FP) PO SCH (21:02)
[2020-08-10] MEDS: PRENATAL VITAMINS W/ FOLIC ACID TABLET (FP) PO SCH (11:28)
[2020-08-10] MEDS: ENALAPRIL MALEATE 10 MG TABLET PO SCH (11:28)
[2020-08-10 12:19] LABS: BASO % 0.7 % (0-2.0); EOS % 1.3 % (0-4.5); HEMATOCRIT 41.2 % (35.4-49); HEMOGLOBIN 13.7 GM/dL (11.7-16.9); LYMPH % 39.1 % (8-40); MCH 31.2 pg (25.7-33.7); MCHC 33.3 g/dl (32.0-35.9); MEAN CELL VOLUME 93.5 fl (80-96); MEAN PLT VOLUME 8.8 fl (7.5-11.1); MONO % 12.3 % (3.8-10.2); NEUT % 46.6 % (42.8-82.8); PLATELET COUNT 332 K/MM3 (134-434); RBC 4.41 M/mm3 (4.00-5.60); RDW 16.1 % (11.9-15.9); WHITE BLOOD COUNT 6.3 K/mm3 (4.0-10.0)
[2020-08-10 12:23] LABS: BLOOD UREA NITROGEN 12.9 mg/dL (7-18); CALCIUM 9.2 mg/dL (8.5-10.1)
[2020-08-10 12:26] LABS: CREATININE 0.9 mg/dL (0.55-1.3)
[2020-08-10] MEDS: traZODone HCL 100 MG TABLET (FP) PO SCH (21:36)
[2020-08-10] MEDS: DIVALPROEX NA *ER* EXTEND REL 500 MG TABLET.SA (FP) PO SCH (21:36)
[2020-08-10] MEDS: MELATONIN 5 MG TABLETS PO PRN (21:36)
[2020-08-10] MEDS: THIAMINE HCL 100 MG TABLET (FP) PO SCH (21:36)
[2020-08-11] MEDS: PRENATAL VITAMINS W/ FOLIC ACID TABLET (FP) PO SCH (12:24)
[2020-08-11] MEDS: ENALAPRIL MALEATE 10 MG TABLET PO SCH (12:24)
[2020-08-11] MEDS: traZODone HCL 100 MG TABLET (FP) PO SCH (21:03)
[2020-08-11] MEDS: DIVALPROEX NA *ER* EXTEND REL 500 MG TABLET.SA (FP) PO SCH (21:03)
[2020-08-11] MEDS: THIAMINE HCL 100 MG TABLET (FP) PO SCH (21:03)
[2020-08-11] MEDS: MELATONIN 5 MG TABLETS PO PRN (21:03)
[2020-08-12] MEDS: ENALAPRIL MALEATE 10 MG TABLET PO SCH (13:31)
[2020-08-12] MEDS: PRENATAL VITAMINS W/ FOLIC ACID TABLET (FP) PO SCH (13:31)
[2020-08-12] MEDS: traZODone HCL 100 MG TABLET (FP) PO SCH (22:14)
[2020-08-12] MEDS: THIAMINE HCL 100 MG TABLET (FP) PO SCH (22:14)
[2020-08-12] MEDS: MELATONIN 5 MG TABLETS PO PRN (22:14)
[2020-08-12] MEDS: DIVALPROEX NA *ER* EXTEND REL 500 MG TABLET.SA (FP) PO SCH (22:15)
[2020-08-13] MEDS: PRENATAL VITAMINS W/ FOLIC ACID TABLET (FP) PO SCH (10:50)
[2020-08-13] MEDS: ENALAPRIL MALEATE 10 MG TABLET PO SCH (10:50)
[2020-08-13] MEDS: DIVALPROEX NA *ER* EXTEND REL 500 MG TABLET.SA (FP) PO SCH (21:04)
[2020-08-13] MEDS: traZODone HCL 100 MG TABLET (FP) PO SCH (21:04)
[2020-08-13] MEDS: THIAMINE HCL 100 MG TABLET (FP) PO SCH (21:04)
[2020-08-13] MEDS: MELATONIN 5 MG TABLETS PO PRN (21:04)
[2020-08-14] MEDS: ENALAPRIL MALEATE 10 MG TABLET PO SCH (10:29)
[2020-08-14] MEDS: PRENATAL VITAMINS W/ FOLIC ACID TABLET (FP) PO SCH (10:29)
[2020-08-14] MEDS: DIVALPROEX NA *ER* EXTEND REL 500 MG TABLET.SA (FP) PO SCH (21:48)
[2020-08-14] MEDS: traZODone HCL 100 MG TABLET (FP) PO SCH (21:48)
[2020-08-14] MEDS: THIAMINE HCL 100 MG TABLET (FP) PO SCH (21:48)
[2020-08-14] MEDS: MELATONIN 5 MG TABLETS PO PRN (21:48)
[2020-08-15] MEDS: ENALAPRIL MALEATE 10 MG TABLET PO SCH (10:22)
[2020-08-15] MEDS: PRENATAL VITAMINS W/ FOLIC ACID TABLET (FP) PO SCH (10:22)
[2020-08-15] MEDS: THIAMINE HCL 100 MG TABLET (FP) PO SCH (21:05)
[2020-08-15] MEDS: traZODone HCL 100 MG TABLET (FP) PO SCH (21:05)
[2020-08-15] MEDS: MELATONIN 5 MG TABLETS PO PRN (21:05)
[2020-08-15] MEDS: DIVALPROEX NA *ER* EXTEND REL 500 MG TABLET.SA (FP) PO SCH (21:05)
[2020-08-16] MEDS: ENALAPRIL MALEATE 10 MG TABLET PO SCH (09:30)
[2020-08-16] MEDS: PRENATAL VITAMINS W/ FOLIC ACID TABLET (FP) PO SCH (09:30)
[2020-08-16] MEDS: DIVALPROEX NA *ER* EXTEND REL 500 MG TABLET.SA (FP) PO SCH (22:06)
[2020-08-16] MEDS: MELATONIN 5 MG TABLETS PO PRN (22:06)
[2020-08-16] MEDS: THIAMINE HCL 100 MG TABLET (FP) PO SCH (22:06)
[2020-08-16] MEDS: traZODone HCL 100 MG TABLET (FP) PO SCH (22:06)
[2020-08-17] MEDS: ENALAPRIL MALEATE 10 MG TABLET PO SCH (11:44)
[2020-08-17] MEDS: PRENATAL VITAMINS W/ FOLIC ACID TABLET (FP) PO SCH (11:44)
[2020-08-17] MEDS: traZODone HCL 100 MG TABLET (FP) PO SCH (21:08)
[2020-08-17] MEDS: MELATONIN 5 MG TABLETS PO PRN (21:08)
[2020-08-17] MEDS: THIAMINE HCL 100 MG TABLET (FP) PO SCH (21:08)
[2020-08-17] MEDS: DIVALPROEX NA *ER* EXTEND REL 500 MG TABLET.SA (FP) PO SCH (21:09)
[2020-08-18] MEDS: PRENATAL VITAMINS W/ FOLIC ACID TABLET (FP) PO SCH (10:39)
[2020-08-18] MEDS: ENALAPRIL MALEATE 10 MG TABLET PO SCH (10:39)
[2020-08-18] MEDS: traZODone HCL 100 MG TABLET (FP) PO SCH (22:03)
[2020-08-18] MEDS: MELATONIN 5 MG TABLETS PO PRN (22:03)
[2020-08-18] MEDS: THIAMINE HCL 100 MG TABLET (FP) PO SCH (22:03)
[2020-08-18] MEDS: DIVALPROEX NA *ER* EXTEND REL 500 MG TABLET.SA (FP) PO SCH (22:03)
[2020-08-19] MEDS: PRENATAL VITAMINS W/ FOLIC ACID TABLET (FP) PO SCH (10:43)
[2020-08-19] MEDS: ENALAPRIL MALEATE 10 MG TABLET PO SCH (10:43)
[2020-08-19] MEDS: DIVALPROEX NA *ER* EXTEND REL 500 MG TABLET.SA (FP) PO SCH (21:06)
[2020-08-19] MEDS: traZODone HCL 100 MG TABLET (FP) PO SCH (21:06)
[2020-08-19] MEDS: THIAMINE HCL 100 MG TABLET (FP) PO SCH (21:06)
[2020-08-19] MEDS: MELATONIN 5 MG TABLETS PO PRN (21:06)
[2020-08-20] MEDS: PRENATAL VITAMINS W/ FOLIC ACID TABLET (FP) PO SCH (09:27)
[2020-08-20] MEDS: ENALAPRIL MALEATE 10 MG TABLET PO SCH (09:27)
[2020-08-20] MEDS: THIAMINE HCL 100 MG TABLET (FP) PO SCH (21:38)
[2020-08-20] MEDS: MELATONIN 5 MG TABLETS PO PRN (21:38)
[2020-08-20] MEDS: traZODone HCL 100 MG TABLET (FP) PO SCH (21:38)
[2020-08-20] MEDS: DIVALPROEX NA *ER* EXTEND REL 500 MG TABLET.SA (FP) PO SCH (21:38)
[2020-08-21 09:13] VITALS: PULSE 53
[2020-08-21] MEDS: PRENATAL VITAMINS W/ FOLIC ACID TABLET (FP) PO SCH (10:42)
[2020-08-21] MEDS: ENALAPRIL MALEATE 10 MG TABLET PO SCH (10:42)
[2020-08-21] MEDS: traZODone HCL 100 MG TABLET (FP) PO SCH (21:02)
[2020-08-21] MEDS: THIAMINE HCL 100 MG TABLET (FP) PO SCH (21:02)
[2020-08-21] MEDS: DIVALPROEX NA *ER* EXTEND REL 500 MG TABLET.SA (FP) PO SCH (21:03)
[2020-08-22 06:54] VITALS: BP 146/91; TEMP 97
[2020-08-22] MEDS: PRENATAL VITAMINS W/ FOLIC ACID TABLET (FP) PO SCH (09:27)
[2020-08-22] MEDS: ENALAPRIL MALEATE 10 MG TABLET PO SCH (09:28)
== END 2020-08-22 09:41 | disposition home or self-care (01) | DRG 772 ==
LOC: YASAS 14:06 → Y3W 19:00
PROVIDERS: ADMIT Allergy & Immunology; ATTEND Allergy & Immunology
PROC: HZ42ZZZ Group Counseling for Substance Abuse Treatment, Cognitive-Behavioral (ICD-10-PCS; principal; 2020-08-05)
DX: F10.20 Alcohol dependence, uncomplicated (principal); F12.20 Cannabis dependence, uncomplicated; F19.20 Other psychoactive substance dependence, uncomplicated; F17.210 Nicotine dependence, cigarettes, uncomplicated; F19.282 Other psychoactive substance dependence with psychoactive substance-induced sleep disorder; F19.24 Other psychoactive substance dependence with psychoactive substance-induced mood disorder; F10.282 Alcohol dependence with alcohol-induced sleep disorder; Z96.641 Presence of right artificial hip joint
CPT/HCPCS: 36415; 80048; 80053; 80164; 81003; 85025; 85027; 86780; C9803; U0003; U0005